=== PATIENT | male | born 1955 | race Caucasian/White ===

== ENCOUNTER 2017-06-13 07:52 | Day surgery (SDC) | payer OTHER ==
[~2017-06-13 07:52] MED LIST: RINGER'S SOLUTION,LACTATED 1,000 ML IV PRN
[2017-06-13] MEDS ORDERED: RINGER'S SOLUTION,LACTATED 1,000 ML IV ONE (07:55)
--- NOTE | 2017-06-13 11:25 | OR ---
Operative Report - Dictated Report Narrative: Date: 06/13/2017 Preop dx: Screen for colon cancer Postop dx: Pancolonic diverticulosis Procedure: Total colonoscopy Staff surgeon: Chidi Edmonds MD Anesthesia: MAC per ULTRASOUND SPEC EBL: none Specimen: none Description: After informed consent and appropriate sedation the patient was placed in the left lateral decubitus position. A flexible fiberoptic video colonoscope was introduced and advanced under direct vision without difficulty to the cecum. The usual landmarks were identified. Preparation was fair but good views were obtained. The findings other than scattered large diverticuli throughout were of a normal cecum, ascending colon, hepatic flexure, transverse colon, splenic flexure, descending dolon, sigmoid colon, and rectum. The mucosal color, vasculature, and texture were normal throughout. No suspicious masses were seen. The patient tolerated the procedure well without apparent complications and was discharged from the endoscopy suite in stable condition.
[2017-06-13 12:49] VITALS: BP 154/78
== END 2017-06-13 07:53 | disposition home or self-care (01) ==
LOC: AMB 07:52
PROVIDERS: ATTEND Specialist
PROC: 0DJD8ZZ Inspection of Lower Intestinal Tract, Via Natural or Artificial Opening Endoscopic (ICD-10-PCS; principal; 2017-06-13 08:50)
DX: Z12.11 Encounter for screening for malignant neoplasm of colon (principal); K57.30 Diverticulosis of large intestine without perforation or abscess without bleeding; I10 Essential (primary) hypertension; E78.5 Hyperlipidemia, unspecified; K21.9 Gastro-esophageal reflux disease without esophagitis; J45.909 Unspecified asthma, uncomplicated; Z87.891 Personal history of nicotine dependence; Z68.30 Body mass index [BMI] 30.0-30.9, adult